=== PATIENT | female | born 1980 | race Caucasian/White ===

== ENCOUNTER 2018-09-27 13:50 | Emergency (ER) | payer OTHER, MEDICAID ==
[~2018-09-27] VITALS: Ht 157.5 cm; Wt 46.7 kg
[~2018-09-27 13:50] MED LIST: AMOXICILLIN500 M1 PO; IBUPROFEN 600600 M1 PO; IBUPROFEN 800800 MG PO; NORCO 5-325 TA1 EACH PO; PREDNISONE 20 M20 M1 PO; PROMETHAZINE-D120 ML PO; ROBAXIN500 MG PO; TRAMADOL 50 MG50 MG PO; VALIUM5 MG PO; VITAMINS
[2018-09-27 15:26] VITALS: BP 111/72
== END 2018-09-27 15:28 | disposition left against medical advice (07) ==
LOC: M.ERS 13:50
DX: Z53.21 Procedure and treatment not carried out due to patient leaving prior to being seen by health care provider (principal)